=== PATIENT | male | born 1960 | race American Indian/Alaskan Native ===

== ENCOUNTER 2019-01-16 19:56 | Emergency (ER) | payer OTHER ==
[~2019-01-16] VITALS: Ht 180.3 cm; Wt 167.8 kg
[2019-01-16 23:44] VITALS: BP 150/81
== END 2019-01-17 00:10 | disposition home or self-care (01) ==
LOC: ER 19:56
DX: H65.01 Acute serous otitis media, right ear (principal); E11.9 Type 2 diabetes mellitus without complications; I10 Essential (primary) hypertension; I48.91 Unspecified atrial fibrillation

== ENCOUNTER → 2023-06-08 | Outpatient (CLI) | payer OTHER ==
[~2023-06-08] MED LIST: ALBU108A5 IN; AMIO200T33 PO; AMLO1TAB22 PO; APIX5TAB PO; BUME2TAB5 PO; BUSP5TAB51 PO; CETI10TA2 PO; DULO40CA PO; EMPA1TAB3 PO; GABA-339 PO; INSU1INJ21 SC; INSU70IN3 SC; LIRA18IN2 SUBCUT; METF-929 PO; MULT-1018 PO; OME20GT PO; SACC1CAP3 PO; SACU1TAB4 PO; SPIR25TA8 PO; TADA5TAB11 PO
[2023-06-08 15:02] LABS: Free T4 (Free Thyroxine) 1.26 ng/dL (0.89-1.76)
== END | disposition home or self-care (01) ==
LOC: LAB 14:05
DX: Z71.84 Encounter for health counseling related to travel (principal)
CPT/HCPCS: 36415; 82306; 82607; 84403; 84439; 84443

== ENCOUNTER 2023-06-16 20:29 | Inpatient (IN) | payer SELFPAY ==
[~2023-06-16] VITALS: Ht 177.8 cm; Wt 188.1 kg
[2023-06-16 21:32] LABS: Basophils # (auto) 0.1 10 ^3/uL (0-0.2); Basophils % (auto) 0.6 % (0.0-2.0); Eosinophils # (auto) 0.1 10 ^3/uL (0-0.8); Eosinophils % (auto) 0.8 % (0.0-7.0); Hematocrit 42.3 % (41.0-53.0); Hemoglobin 14.1 g/dL (13.5-17.5); Lymphocytes # (auto) 0.9 10 ^3/uL (0.4-5.4); Lymphocytes % (auto) 9.5 % (10.0-50.0); Mean Corpuscular Hemoglobin 30.4 pg (28.0-32.0); Mean Corpuscular Hgb Conc. 33.2 g/dL (32.0-36.0); Mean Corpuscular Volume 91.5 fL (80.0-100.0); Monocytes # (auto) 0.6 10 ^3/uL (0-1.3); Monocytes % (auto) 7.1 % (0.0-12.0); Neutrophils # (auto) 7.4 10 ^3/uL (1.6-8.6); Nucleated Red Blood Cells % 0.1 %; Red Blood Cells 4.63 10^6/uL (4.5-5.90); Red Cell Distribution Width 13.7 % (11.8-14.3)
[2023-06-16 21:45] LABS: INR 1.04 (0.9-1.15); Partial Thromboplastin Time 33.7 SEC (24.5-34.5); Prothrombin Time 10.9 sec (9.3-11.8)
[2023-06-16 22:10] LABS: Alanine Aminotransferase 23 U/L (7-40); Albumin 4.3 g/dL (3.2-4.8); Alkaline Phosphatase 108 U/L (46-116); Anion Gap 11 (5-15); Aspartate Aminotransferase 15 U/L (13-40); BUN/Creatinine Ratio 15.7 (10.0-20.0); Blood Urea Nitrogen 21 mg/dL (9-23); Calcium 9.2 mg/dL (8.5-10.1); Carbon Dioxide 24 mmol/L (20-30); Chloride 104 mmol/L (98-107); Glucose 172 mg/dL (74-106); Potassium 3.8 mmol/L (3.5-5.1); Sodium 139 mmol/L (136-145)
[2023-06-16] MEDS ORDERED: NITROGLYCERIN 2% OINT 1GM PKG TD ONE (22:45)
[2023-06-16] MEDS ORDERED: FUROSEMIDE 100 MG/10ML VIAL IV ONE (22:45)
[2023-06-16 23:00] VITALS: PULSE 72; RESP 16; O2SAT 94
[2023-06-16] MEDS ORDERED: ONDANSETRON HCL 4 MG/2 ML VIAL IV PRN (23:45)
[2023-06-16] MEDS ORDERED: ALBUTEROL MEDNEB 2.5 mg/3ml NEB NEB PRN (23:45)
[2023-06-16] MEDS ORDERED: MORPHINE SULFATE INJ 2 MG/ml SYRG IV PRN (23:45)
[2023-06-16] MEDS ORDERED: NITROGLYCERIN 0.4 MG SL TAB SL PRN (23:45)
[2023-06-16] MEDS ORDERED: IPRATROPIUM BROM 0.5 MG/2.5ML INH SOL NEB PRN (23:45)
[2023-06-16] MEDS ORDERED: DOCUSATE SOD 100 MG CAP PO PRN (23:45)
[2023-06-16] MEDS ORDERED: DEXTROSE (50%) 50ML SYRG IV PRN (23:45)
[2023-06-16] MEDS ORDERED: ACETAMINOPHEN 325 MG TAB PO PRN (23:45)
[2023-06-17] VITALS (12 sets, daily range): BP systolic 100–133; BP diastolic 53–82; PULSE 64–81; RESP 18–24; TEMP 97.9–98.9; O2SAT 90–98
[2023-06-17 02:07] LABS: Rapid Influenza A Negative (Negative); Rapid Influenza B Negative (Negative)
[2023-06-17 02:08] LABS: COVID19 ANTIGEN SOFIA FIA NEGATIVE (NEGATIVE)
[2023-06-17 03:09] LABS: Urine Bacteria NONE SEEN /hpf (None Seen); Urine Blood Negative /uL (Negative); Urine Clarity Clear (Clear); Urine Color Colorless (Yellow); Urine Protein, UAD Negative (Negative); Urine Specific Gravity 1.013 (1.001-1.035); Urine Urobilinogen Normal (Negative); Urine WBC 1 /hpf (0 - 3)
[2023-06-17 06:10] LABS: Basophils # (auto) 0.1 10 ^3/uL (0-0.2); Basophils % (auto) 0.7 % (0.0-2.0); Eosinophils # (auto) 0.1 10 ^3/uL (0-0.8); Eosinophils % (auto) 1.3 % (0.0-7.0); Hematocrit 41.2 % (41.0-53.0); Hemoglobin 13.7 g/dL (13.5-17.5); Lymphocytes # (auto) 1.4 10 ^3/uL (0.4-5.4); Lymphocytes % (auto) 18.8 % (10.0-50.0); Mean Corpuscular Hemoglobin 30.3 pg (28.0-32.0); Mean Corpuscular Hgb Conc. 33.2 g/dL (32.0-36.0); Mean Corpuscular Volume 91.1 fL (80.0-100.0); Monocytes # (auto) 0.7 10 ^3/uL (0-1.3); Monocytes % (auto) 8.9 % (0.0-12.0); Neutrophils # (auto) 5.3 10 ^3/uL (1.6-8.6); Neutrophils % (auto) 70.3 % (37.0-80.0); Nucleated Red Blood Cells % 0.1 %; Red Blood Cells 4.53 10^6/uL (4.5-5.90); Red Cell Distribution Width 13.6 % (11.8-14.3); White Blood Cell 7.5 10^3/uL (4.4-10.8)
[2023-06-17 06:17] LABS: Alanine Aminotransferase 23 U/L (7-40); Albumin 4.1 g/dL (3.2-4.8); Alkaline Phosphatase 116 U/L (46-116); Anion Gap 11 (5-15); Aspartate Aminotransferase 12 U/L (13-40); BUN/Creatinine Ratio 17.9 (10.0-20.0); Blood Urea Nitrogen 24 mg/dL (9-23); Calcium 9.2 mg/dL (8.5-10.1); Carbon Dioxide 27 mmol/L (20-30); Chloride 104 mmol/L (98-107); Glucose 101 mg/dL (74-106); Potassium 3.2 mmol/L (3.5-5.1); Sodium 142 mmol/L (136-145)
[2023-06-17 06:18] LABS: Total Protein 6.7 g/dL (5.7-8.2)
[2023-06-17] MEDS: ACCU-CHEK COMFORT CURVE STRIP VI SCH ×4 (06:48→21:43)
[2023-06-17] MEDS: InsuLIN REG 1unit/0.01ml Soln (100units/ml) SC SCH ×4 (06:48→21:51)
[2023-06-17] MEDS ORDERED: POTASSIUM CHL 20 Meq TABLET PO ONE (09:45)
[2023-06-17 09:55] LABS: Triglycerides 117 mg/dL (< 150)
[2023-06-17 09:56] LABS: LDL Cholesterol 68 mg/dL (< 100)
[2023-06-17 09:57] LABS: Cholesterol 129 mg/dL (< 200); HDL Cholesterol 37 mg/dL (40-59)
[2023-06-17] MEDS ORDERED: CARVEDILOL 12.5 MG TAB PO SCH ×2 (10:00→22:00)
[2023-06-17] MEDS ORDERED: SPIRONOLACTONE 25 MG TAB PO SCH (10:00)
[2023-06-17] MEDS ORDERED: FUROSEMIDE 40 MG/4 ML VIAL IV SCH (10:00)
[2023-06-17] MEDS ORDERED: PATIENTS OWN MEDICATION PO SCH (10:00)
[2023-06-17] MEDS ORDERED: amLODIPine BESYLATE 5 MG TAB PO SCH (10:00)
[2023-06-17] MEDS: FUROSEMIDE 40 MG/4 ML VIAL IV SCH ×3 (12:19→21:38)
[2023-06-17] MEDS: PANTOPRAZOLE 40 MG TAB PO SCH (12:19)
[2023-06-17] MEDS: lamoTRIgine 25 MG TAB PO SCH ×2 (12:21→21:31)
[2023-06-17] MEDS: APIXABAN 5 MG TAB PO SCH ×2 (12:21→21:32)
[2023-06-17] MEDS: AMIODARONE HCL 200 MG TAB PO SCH (12:21)
[2023-06-17] MEDS: SACUBITRIL-VALSARTAN 24mg/26mg TAB PO SCH ×2 (12:22→21:31)
[2023-06-17] MEDS: busPIRone HCL 10 MG TAB PO SCH ×2 (12:23→21:32)
[2023-06-17] MEDS: EMPAGLIFLOZIN 10 MG TAB PO SCH (13:29)
[2023-06-17] MEDS ORDERED: METF-929 PO (17:37)
[2023-06-17] MEDS ORDERED: CETI10TA2 PO (17:37)
[2023-06-17] MEDS ORDERED: APIX5TAB PO (17:37)
[2023-06-17] MEDS ORDERED: INSU70IN3 SC (17:37)
[2023-06-17] MEDS ORDERED: DULO40CA PO (17:37)
[2023-06-17] MEDS ORDERED: OME20GT PO (17:37)
[2023-06-17] MEDS ORDERED: AMLO1TAB22 PO (17:37)
[2023-06-17] MEDS ORDERED: SACC1CAP3 PO (17:37)
[2023-06-17] MEDS ORDERED: AMIO200T33 PO (17:37)
[2023-06-17] MEDS ORDERED: BUSP5TAB51 PO (17:37)
[2023-06-17] MEDS ORDERED: LIRA18IN2 SUBCUT (17:37)
[2023-06-17] MEDS ORDERED: MULT-1018 PO (17:37)
[2023-06-17] MEDS ORDERED: EMPA1TAB3 PO (17:37)
[2023-06-17] MEDS ORDERED: SPIR25TA8 PO (18:23)
[2023-06-17] MEDS ORDERED: TADA5TAB11 PO (18:23)
[2023-06-17] MEDS ORDERED: SACU1TAB4 PO (18:23)
[2023-06-17] MEDS ORDERED: ALBU108A5 IN (18:23)
[2023-06-17] MEDS: BUDESONIDE (INHALATION) 0.5 MG/2 ML NEB NEB SCH (18:58)
[2023-06-17] MEDS ORDERED: DULOXETINE 40 MG PO SCH (22:00)
[2023-06-18 00:04] LABS: Protein, Urine 16.1 mg/dL (0.0-11.9)
[2023-06-18 00:06] LABS: Creatinine, Urine 69.51 mg/dL (30.0-125.0); Urine Protein/Creatinine Ratio 0.23
[2023-06-18] MEDS ORDERED: GABA-339 PO (00:49)
[2023-06-18 05:00] VITALS: BP 113/54; PULSE 65; RESP 17; TEMP 98.2; O2SAT 92
[2023-06-18] MEDS: ACCU-CHEK COMFORT CURVE STRIP VI SCH ×2 (06:09→11:30)
[2023-06-18] MEDS: InsuLIN REG 1unit/0.01ml Soln (100units/ml) SC SCH ×2 (06:12→11:30)
[2023-06-18] MEDS: EMPAGLIFLOZIN 10 MG TAB PO SCH (06:13)
[2023-06-18 06:20] LABS: Basophils # (auto) 0 10 ^3/uL (0-0.2); Basophils % (auto) 0.7 % (0.0-2.0); Eosinophils # (auto) 0.1 10 ^3/uL (0-0.8); Eosinophils % (auto) 2.2 % (0.0-7.0); Lymphocytes # (auto) 1.4 10 ^3/uL (0.4-5.4); Lymphocytes % (auto) 23.3 % (10.0-50.0); Mean Corpuscular Hemoglobin 30.1 pg (28.0-32.0); Mean Corpuscular Hgb Conc. 33.3 g/dL (32.0-36.0); Mean Corpuscular Volume 90.6 fL (80.0-100.0); Monocytes # (auto) 0.6 10 ^3/uL (0-1.3); Monocytes % (auto) 9.5 % (0.0-12.0); Neutrophils % (auto) 64.3 % (37.0-80.0); Nucleated Red Blood Cells % 0.2 %; Red Blood Cells 4.63 10^6/uL (4.5-5.90); Red Cell Distribution Width 13.6 % (11.8-14.3); White Blood Cell 6.2 10^3/uL (4.4-10.8)
[2023-06-18 06:27] LABS: Alanine Aminotransferase 22 U/L (7-40); Albumin 4.1 g/dL (3.2-4.8); Alkaline Phosphatase 110 U/L (46-116); Anion Gap 9 (5-15); Aspartate Aminotransferase 16 U/L (13-40); BUN/Creatinine Ratio 17.8 (10.0-20.0); Bilirubin, Total 0.9 mg/dL (0.2-1.0); Blood Urea Nitrogen 24 mg/dL (9-23); Calcium 9.1 mg/dL (8.5-10.1); Carbon Dioxide 26 mmol/L (20-30); Chloride 105 mmol/L (98-107); Glucose 138 mg/dL (74-106); Potassium 3.5 mmol/L (3.5-5.1); Sodium 140 mmol/L (136-145)
[2023-06-18 06:28] LABS: Total Protein 6.6 g/dL (5.7-8.2)
[2023-06-18 08:00] VITALS: PULSE 59
[2023-06-18 09:00] VITALS: BP 116/61; PULSE 62; RESP 19; TEMP 98; O2SAT 91
[2023-06-18] MEDS ORDERED: ERGOCALCIFEROL 50,000 UNIT(1.25MG) CAP PO SCH (09:00)
[2023-06-18] MEDS ORDERED: BUME2TAB5 PO (09:04)
[2023-06-18] MEDS: lamoTRIgine 25 MG TAB PO SCH (09:33)
[2023-06-18] MEDS: PANTOPRAZOLE 40 MG TAB PO SCH (09:33)
[2023-06-18] MEDS: AMIODARONE HCL 200 MG TAB PO SCH (09:34)
[2023-06-18] MEDS: APIXABAN 5 MG TAB PO SCH (09:34)
[2023-06-18] MEDS: busPIRone HCL 10 MG TAB PO SCH (09:35)
[2023-06-18] MEDS: FUROSEMIDE 40 MG/4 ML VIAL IV SCH (09:35)
[2023-06-18 09:49] VITALS: O2SAT 91
[2023-06-18] MEDS ORDERED: CARVEDILOL 3.125 MG TAB PO SCH (10:00)
[2023-06-18] MEDS: BUDESONIDE (INHALATION) 0.5 MG/2 ML NEB NEB SCH (10:00)
[2023-06-18] MEDS ORDERED: SACUBITRIL-VALSARTAN 24mg/26mg TAB PO SCH (10:00)
[2023-06-18] MEDS ORDERED: SPIRONOLACTONE 25 MG TAB PO SCH ×2 (10:00)
[2023-06-18] MEDS ORDERED: INSU1INJ21 SC ×2 (11:53→11:55)
[2023-06-18 13:00] VITALS: BP 101/55; PULSE 60; RESP 19; TEMP 98; O2SAT 97
== END 2023-06-18 14:00 | disposition home or self-care (01) | DRG 291 ==
LOC: EDBD 20:29 → ER 20:29 → TELE 23:36 → TELE-WESTW 06-17 09:17
PROVIDERS: ADMIT Internal Medicine; ATTEND Internal Medicine
DX: I11.0 Hypertensive heart disease with heart failure (principal); I50.43 Acute on chronic combined systolic (congestive) and diastolic (congestive) heart failure; J96.21 Acute and chronic respiratory failure with hypoxia; N17.0 Acute kidney failure with tubular necrosis; Z68.41 Body mass index [BMI] 40.0-44.9, adult; E66.01 Morbid (severe) obesity due to excess calories; E11.9 Type 2 diabetes mellitus without complications; I27.20 Pulmonary hypertension, unspecified; G47.33 Obstructive sleep apnea (adult) (pediatric); Z20.822 Contact with and (suspected) exposure to COVID-19; E78.5 Hyperlipidemia, unspecified; I48.0 Paroxysmal atrial fibrillation; Z79.01 Long term (current) use of anticoagulants; Z79.4 Long term (current) use of insulin; Z86.73 Personal history of transient ischemic attack (TIA), and cerebral infarction without residual deficits; Z71.3 Dietary counseling and surveillance
CPT/HCPCS: 36415; 71045; 76775; 80053; 80061; 81001; 82043; 82306; 82570; 82962; 83036; 83605; 83735; 83880; 83970; 84156; 84300; 84443; 84484; 85025; 85379; 85610; 85730; 87040; 87426; 87804; 93005; 93306; 93970; 94640; 96374; 99291; G0378; J1815

== ENCOUNTER 2024-07-26 08:45 | Emergency (ER) | payer OTHER ==
[~2024-07-26] VITALS: Ht 180.3 cm; Wt 190.0 kg
[~2024-07-26 08:45] MED LIST changes: -INSU70IN3 SC; -METF-929 PO
--- NOTE | 2024-07-26 10:19 | ED.PDOC ---
SOB-HPI HPI Comments 64 year old male brought in by EMS with a chief complaint of shortness of breath onset 2 days. Patient states he began experiencing shortness of breath 2 days ago and noticed it worsens with walking. Upon EMS arrival, O2 sat was 88% on RA, placed on 8L NC. Patient has a PMHx CHF, DM and is out of Lasix medication for the past week. Denies chest pain, nausea, vomiting, diarrhea. No other symptoms or modifying factors present at this time. Chief Complaint: Shortness of Breath Time Seen by MD: 09:47 Reviewed notes: Medications, Allergies Information Source: Patient, Emergency Med Personnel Mode of Arrival: EMS Severity: Moderate Timing: Days Duration: Since onset Context: At Rest PE Risk Factors: None History of: CHF Prehospital treatment: Oxygen, Treatment Associated Signs and Symptoms: Leg Swelling Radiation: No Radiation Past Medical History PAST MEDICAL HISTORY: AFIB, CHF, DM, HTN Surgical History: Denies all surgeries Family History Family History: Reviewed,noncontributory to illness, No family hx of Cancer, No family hx of DM, No family hx of Heart [place], No family hx of HTN, No family hx ofKidney [place], No family hx of Liver [place], No family hx of Lung [place], No family hx of Stroke Social History Smoker: Non-Smoker Alcohol: Denies ETOH Use Drugs: Denies Drug Use Lives In: Home Constitutional: reports: fatigue; denies: chills, diaphoresis, fever, malaise, sweats, weakness, others EENTM: denies: blurred vision, double vision, ear bleeding, ear discharge, ear drainage, ear pain, ear ringing, eye pain, eye redness, hearing loss, mouth marcell n, mouth swelling, nasal discharge, nose bleeding, nose congestion, nose pain, photophobia, tearing, throat pain, throat swelling, voice changes, others Respiratory: reports: shortness of breath; denies: cough, hemoptysis, orthopnea, SOB at rest, SOB with excertion, stridor, wheezing, others Cardiovascular: denies: chest pain, dizzy spells, diaphoresis, Dyspnea on exertion, edema, irregular heart beat, left arm pain, lightheadedness, palpitati ons, PND, syncope, others Gastrointestinal: denies: abdomen distended, abdominal pain, blood streaked bowels, constipated, diarrhea, dysphagia, difficulty swallowing, hematemesis, melena, nausea, poor appetite, poor fluid intake, rectal bleeding, rectal pain, vomiting, others Genitourinary: denies: burning, dysuria, flank pain, frequency, hematuria, incontinence, penile discharge, penile sore, pain, testicle pain, testicle swelling, urgency, others Neurological: denies: dizziness, fainting, headache, left sided numbness, left sided weakness, numbness, paresthesia, pre-existing deficit, right sided numbness, right sided weakness, seizure, speech problems, tingling, tremors, weakness, others Musculoskeletal: denies: back pain, gout, joint pain, joint swelling, muscle pain, muscle stiffness, neck pain, others Integumetry: denies: bruises, change in color, change in hair/nails, dryness, laceration, lesions, lumps, rash, wounds, others Allergic/Immunocompromised: denies: Difficulty Healing, Frequent Infections, Hives, Itching, others Hematologic/Lymphatic: denies: anemia, blood clots, easy bleeding, easy bruising, swollen glands, others Endocrine: denies: excessive hunger, excessive sweating, excessive thirst, excessive urination, flushing, intolerance to cold, intolerance to heat, unexplained weight gain, unexplained weight loss, others Psychiatric: denies: anxiety, bipolar disorder, depression, hopeless, panic disorder, schizophrenia, sleepless, suicidal, others All Other Systems: Reviewed and Negative Physical Exam General Appearance: Moderate Distress, Other (Increased BMI) HEENT: Normal ENT Inspection, Pharynx Normal, TMs Normal Neck: Full Range of Motion, Non-Tender, Normal, Normal Inspection Respiratory: Respiratory Distress Cardiovascular: No Edema, No JVD, No Murmur, No Gallop, Normal Peripheral Pul ses, Regular Rate/Rhythm Breast Exam: Deferred Gastrointestinal: No Organomegaly, Non Tender, No Pulsatile Mass, Normal Bowel Sounds, Soft Genitalia: Deferred Pelvic: Deferred Rectal: Deferred Extremities: No calf tenderness, Normal capillary refill, Normal range of motion, Non-tender, Pedal edema, Swelling (Bilateral lower extremity) Musculoskeletal : Apperance: Normal Neurologic: Alert, diamond selector II-XII nml as Tested, No Motor Deficits, Normal Affect, Normal Mood, No Sensory Deficits Cerebellar Function: NOT DONE Reflexes: NOT DONE Skin: Dry, Normal Color, Warm Peripheral Pulses: 3+ Radial (R), 3+ Radial (L) Lymphatic: No Adenopathy Was a procedure done? Was a procedure done?: No Differential Dx Differential Diagnosis: Anxiety, Asthma, Bronchitis, CHF, COPD X-Ray, Labs, Meds, VS Vital Signs Date Time Temp Pulse Resp B/P (MAP) Pulse Ox O2 Delivery O2 Flow Rate FiO2 07/26/24 10:30 98.3 82 16 118/64 (82) 99 98.3 07/26/24 10:30 118/64 07/26/24 10:30 82 99 Simple Mask* 6 50 07/26/24 09:05 16 99 Nasal Cannula* 4 36 07/26/24 09:05 98.3 82 16 118/64 (82) 99 Lab Test 07/26/24 11:15 Range/Units White Blood Count Pending Red Blood Count Pending Hemoglobin Pending Hematocrit Pending Mean Corpuscular Volume Pending Mean Corpuscular Hemoglobin Pending Mean Corpuscular Hemoglobin Concent Pending Red Cell Distribution Width Pending Platelet Count Pending Mean Platelet Volume Pending Neutrophils (%) (Auto) Pending Lymphocytes (%) (Auto) Pending Monocytes (%) (Auto) Pending Basophils (%) (Auto) Pending Neutrophils # (Auto) Pending Lymphocytes # (Auto) Pending Monocytes # (Auto) Pending Sodium Level Pending Potassium Level Pending Chloride Level Pending Carbon Dioxide Level Pending Anion Gap Pending Blood Urea Nitrogen Pending Creatinine Pending Glomerular Filtration Rate Calc Pending BUN/Creatinine Ratio Pending Serum Glucose Pending Calcium Level Pending Troponin I High Sensitivity Pending B-Type Natriuretic Peptide Pending Current Medications Medications (Trade) Dose Ordered Sig/David Route Start Time Stop Time Status Last Admin Furosemide (Lasix Injection) 40 mg ONCE ONCE IV 07/26/24 10:30 07/26/24 10:31 DC 07/26/24 10:30 Patient alert. Increased BMI. Vitals stable. Placed on oxygen. Bilateral lower extremity swelling. CHF. Was given Lasix. He has ran out of his Lasix. Reviewed his history pain Explained to the patient. EKG reviewed does not show any acute process. Continue cardiac monitoring. Chest x-ray reviewed does show CHF along with pneumonitis. Was given steroid. Was given Rocephin. Was given azithromycin. Time of 1ST Reevaluation: 10:17 Reevaluation 1ST: Unchanged Patient Education/Counseling: Diagnosis, Treatment, Prognosis Family Education/Counseling: No Family Present Additional Information I reviewed the following notes from patient's past medical encounters: The following tests were ordered, and results were reviewed by me: UA, EKG, TROP, CBC, BNP, XY CHEST, BMP Additional Information was gathered from interviewing the following independent historians: EKG I reviewed and agreed with the following test results read by other providers:XY CHEST I discussed treatment and results with medical personnel and: patient Departure 1 Departure Time of Disposition: 11:39 Impression: Primary Impression: Acute respiratory failure Qualified Codes: J96.01 - Acute respiratory failure with hypoxia Additional Impressions: Pneumonitis CHF exacerbation Qualified Codes: I50.43 - Acute on chronic combined systolic (congestive) and diastolic (congestive) heart failure Disposition: ADMITTED INPATIENT Admit to: Med Surg Condition: Guarded Critical Care Note Critical Care Time?: Yes (90 min-critical care time only) Stability Stability form required: No Heart Score Heart Score: Heart Score Response (Comments) Value History Slightly Suspicious 0 EKG Normal 0 Age 45-64 1 Risk Factors >3 or Hx ASHD 2 Troponin Normal limit 0 Total 3 I personally scribed for CONG JACOB MD ([email or web address]) on 07/26/24 at 10:19. Electronically submitted by Catherine Cruz ([email or web address]). I personally scribed for CONG JACOB MD ([email or web address]) on 07/26/24 at 10:40. Electronically submitted by Catherine Cruz ([email or web address]). CONG JACOB MD Jul 26, 2024 10:19
[2024-07-26 10:30] VITALS: PULSE 82; O2SAT 99
[2024-07-26] MEDS: FUROSEMIDE 40 MG/4 ML VIAL IV ONE (10:30)
--- NOTE | 2024-07-26 11:14 | DVH ---
CHEST RADIOGRAPH Indication: sob Technique: Single frontal view of the chest was obtained COMPARISON: XY CHEST PORTABLE on DOS: 06/16/23 FINDINGS: Lines and Tubes: None Lungs: Congestion Pleura: No effusion. No pneumothorax. Cardiomediastinal contours: Unremarkable Bones: Unremarkable IMPRESSION: Congestion versus viral pneumonitis.
[2024-07-26 11:40] LABS: Basophils # (auto) 0.1 10 ^3/uL (0-0.2); Basophils % (auto) 1.1 % (0.0-2.0); Eosinophils # (auto) 0 10 ^3/uL (0-0.8); Eosinophils % (auto) 0.5 % (0.0-7.0); Hematocrit 44.7 % (41.0-53.0); Hemoglobin 14.9 g/dL (13.5-17.5); Lymphocytes # (auto) 1.3 10 ^3/uL (0.4-5.4); Lymphocytes % (auto) 13.5 % (10.0-50.0); Mean Corpuscular Hemoglobin 30.6 pg (28.0-32.0); Mean Corpuscular Hgb Conc. 33.4 g/dL (32.0-36.0); Mean Corpuscular Volume 91.8 fL (80.0-100.0); Monocytes # (auto) 0.8 10 ^3/uL (0-1.3); Monocytes % (auto) 8.5 % (0.0-12.0); Neutrophils # (auto) 7.4 10 ^3/uL (1.6-8.6); Neutrophils % (auto) 76.4 % (37.0-80.0); Nucleated Red Blood Cells % 0.3 %; Platelet Count (auto) 235 10^3/uL (140-450); Red Blood Cells 4.87 10^6/uL (4.5-5.90); Red Cell Distribution Width 13.7 % (11.8-14.3); White Blood Cell 9.7 10^3/uL (4.4-10.8)
[2024-07-26 11:44] LABS: Chloride 106 mmol/L (98-107); Potassium 4.2 mmol/L (3.5-5.1); Sodium 138 mmol/L (136-145)
[2024-07-26 11:45] LABS: Anion Gap 10 (5-15); Carbon Dioxide 22 mmol/L (20-31)
[2024-07-26 11:50] LABS: BUN/Creatinine Ratio 23.5 (10.0-20.0)
[2024-07-26 11:56] LABS: Blood Urea Nitrogen 28 mg/dL (9-23); Calcium 8.7 mg/dL (8.7-10.4); Glucose 260 mg/dL (74-106)
[2024-07-26] MEDS: AZITHROMYCIN 500MG/ 250ML 250 ML IV ONE (11:59)
[2024-07-26] MEDS: cefTRIAXone 1GM/50ML D5W 50 ML IV ONE (11:59)
[2024-07-26] MEDS: methylPREDNISolone SOD SUCC 125 MG/2 ML VL IV ONE (11:59)
[2024-07-26 14:10] VITALS: BP 142/91; PULSE 83; RESP 16; TEMP 97.6; O2SAT 100
== END 2024-07-26 14:34 | disposition left against medical advice (07) ==
LOC: ER 08:45 → EDBD 08:45 → ER 14:34
DX: J96.00 Acute respiratory failure, unspecified whether with hypoxia or hypercapnia (principal); J98.4 Other disorders of lung; I11.0 Hypertensive heart disease with heart failure; E11.9 Type 2 diabetes mellitus without complications
CPT/HCPCS: 36415; 71045; 80048; 83880; 84484; 85025; 96365; 96366; 96368; 96375; 99285; J0456; J0696; J1940; J2919